=== PATIENT | male | born 1945 | race Caucasian/White ===

== ENCOUNTER 2017-04-04 11:33 | Outpatient (CLI) | payer OTHER, MEDICARE ==
[~2017-04-04] VITALS: Ht 190.5 cm; Wt 118.1 kg
[2017-04-04 11:56] VITALS: BP 133/77
[2017-04-04 12:32] LABS: BILIRUBIN,URINE NEGATIVE (NEGATIVE); KETONES,URINE NEGATIVE (NEGATIVE); LEUKOCYTE ESTERASE ,URINE 3+ (NEGATIVE); NITRITE,URINE POSITIVE (NEGATIVE); PH,URINE 8 (5-9); PROTEIN,URINE 2+ (NEGATIVE); UROBILINOGEN,URINE NORMAL (NORMAL)
[2017-04-04 12:33] LABS: BASOPHILS % (AUTO) 0 % (0-10); EOSINOPHILS # (AUTO) 0.3 10^3/uL (0.0-0.3); EOSINOPHILS % (AUTO) 3 % (0-10); LYMPHOCYTES # (AUTO) 2.2 X 10^3 (1.0-4.0); LYMPHOCYTES % (AUTO) 22 % (12-44); MEAN CORPUSCULAR HEMOGLOBIN 31 PG (25-34); MEAN CORPUSCULAR HGB CONC 33 G/DL (32-36); MEAN CORPUSCULAR VOLUME 91 FL (80-99); MEAN PLATELET VOLUME 9.7 FL (7.4-10.4); MONOCYTES # (AUTO) 0.9 X 10^3 (0.0-1.0); MONOCYTES % (AUTO) 9 % (0-12); NEUTROPHILS # (AUTO) 6.3 X 10^3 (1.8-7.8); NEUTROPHILS % (AUTO) 65 % (42-75); PLATELET COUNT 239 10^3/uL (130-400); RED CELL DISTRIBUTION WIDTH 12.7 % (10.0-14.5); WHITE BLOOD COUNT 9.7 10^3/uL (4.3-11.0)
[2017-04-04 12:55] LABS: SQUAMOUS EPITHELIAL CELL,UR RARE /HPF
[2017-04-04 12:57] LABS: ANION GAP 8 MMOL/L (5-14); BLOOD UREA NITROGEN 25 MG/DL (7-18); BUN/CREATININE RATIO 22; CALCIUM 10.3 MG/DL (8.5-10.1); CARBON DIOXIDE 30 MMOL/L (21-32); CHLORIDE 104 MMOL/L (98-107); CREATININE SERUM 1.15 MG/DL (0.60-1.30); GFR ESTIMATED > 60; GLUCOSE 112 MG/DL (70-105); POTASSIUM 4.3 MMOL/L (3.6-5.0); SODIUM 142 MMOL/L (135-145)
--- NOTE | 2017-04-04 14:07 | Diagnostic Imaging Report ---
PA and lateral views of the chest. INDICATION: Preoperative evaluation for TURP. FINDINGS: The lungs are hyperinflated. The heart size is moderately enlarged. Two pacemaker leads are seen with a pacemaker projecting over left chest. No effusion or pneumothorax. The mediastinum and jose alejandro appear unremarkable. IMPRESSION: Cardiomegaly. COPD. Dictated by: Dictated on workstation # [id number]
[2017-04-04] MEDS ORDERED: PIOG15TA9 PO (15:05)
[2017-04-04] MEDS ORDERED: METF1000 PO (15:05)
[2017-04-04] MEDS ORDERED: CARV3.122 PO (15:05)
[2017-04-04] MEDS ORDERED: GABA800T2 PO (15:05)
[2017-04-04] MEDS ORDERED: CITA10TA12 PO (15:05)
[2017-04-04] MEDS ORDERED: LISI10TA2 PO (15:05)
[2017-04-04] MEDS ORDERED: FINA5TAB6 PO (15:05)
[2017-04-04] MEDS ORDERED: TAMS0.4C2 PO (15:05)
[2017-04-04] MEDS ORDERED: ASPI-586 PO (15:05)
[2017-04-04] MEDS ORDERED: FURO-124 PO (15:05)
[2017-04-04] MEDS ORDERED: LOVA40TA2 PO (15:05)
[2017-04-04] MEDS ORDERED: CLOP75TA28 PO (15:05)
== END 2017-04-04 15:19 | disposition home or self-care (01) ==
LOC: PREOP 11:33
PROVIDERS: ATTEND Urology
DX: Z01.812 Encounter for preprocedural laboratory examination (principal); Z01.811 Encounter for preprocedural respiratory examination; N40.1 Benign prostatic hyperplasia with lower urinary tract symptoms
CPT/HCPCS: 36415; 71020; 80048; 81000; 85025; 86850; 86900; 86901; 87081; 87088; 93005

== ENCOUNTER 2017-04-08 07:40 | Day surgery (SDC) | payer OTHER, MEDICARE ==
[~2017-04-08] VITALS: Ht 190.5 cm; Wt 118.1 kg
[~2017-04-08 07:40] MED LIST: ASPI-586 PO; CARV3.122 PO; CITA10TA12 PO; CLOP75TA28 PO; FINA5TAB6 PO; FURO-124 PO; GABA800T2 PO; LISI10TA2 PO; LOVA40TA2 PO; METF1000 PO; PIOG15TA9 PO; TAMS0.4C2 PO
[2017-04-08 08:10] VITALS: BP 169/92
[2017-04-08] MEDS ORDERED: cefTRIAXone 1 GM/NS 50 ML IVPB IV ONE ×2 (08:15)
[2017-04-08] MEDS: LACTATED RINGERS 1,000 ML IV PRN ×2 (08:20→10:28)
[2017-04-08] MEDS ORDERED: LEVOFLOXACIN 500 MG/100 ML IV 100 ML ONE (08:24)
--- NOTE | 2017-04-08 08:33 | Progress Note-Pre Operative ---
Pre-Operative Progress Note H&P Reviewed The H&P was reviewed, patient examined and no changes noted. Date Seen by Provider: Apr 08, 2017 Time Seen by Provider: 08:33 Date H&P Reviewed: Apr 08, 2017 Time H&P Reviewed: 08:33 Pre-Operative Diagnosis: BPH WITH URINE RETENTION VINNIE RAHMAN MD Apr 08, 2017 08:33
[2017-04-08] MEDS ORDERED: LEVOFLOXACIN 500 MG/100 ML IV 100 ML IV ONE (08:45)
[2017-04-08] MEDS ORDERED: LACTATED RINGERS 1,000 ML IV SCH (09:26)
[2017-04-08] MEDS ORDERED: ZOLPIDEM 5 MG (AMBIEN) TAB PO PRN (09:30)
[2017-04-08] MEDS ORDERED: MILK OF MAGNESIA 400 MG/5 ML 30 ML UDC PO PRN (09:30)
--- NOTE | 2017-04-08 09:33 | Progress Note-Post Operative ---
Post-Operative Progess Note Surgeon (s)/Paid Internship (s) Surgeon VINNIE RAHMAN MD Paid Internship: N/A Pre-Operative Diagnosis BPH WITH URINE RETENTION Post-Operative Diagnosis SAME Procedure & Operative Findings Date of Procedure 04/08/17 Procedure Performed/Findings TURP Anesthesia Type SPINAL Estimated Blood Loss Estimated blood loss (mL): 150cc Specimens/Packing Specimens Removed PROSTATE CHIPS Packing: N/A VINNIE RAHMAN MD Apr 08, 2017 9:33 am
[2017-04-08] MEDS ORDERED: MIDAZOLAM 2 MG/2 ML (VERSED) VIAL ONE (09:36)
[2017-04-08] MEDS ORDERED: PROPOFOL INJECTION 50 ML IV ONE (09:37)
[2017-04-08] MEDS ORDERED: ONDANSETRON 4 MG/2 ML (SDV) Z0FRAN IVP PRN (11:45)
[2017-04-08 12:00] VITALS: BP 172/84
[2017-04-08 12:40] VITALS: BP 169/92
--- NOTE | 2017-04-08 13:09 | Consultation-Hospitalist ---
HPI History of Present Illness: HPI/Chief Complaint Pt is a 72yoCM with PMH of NIDDMII, CAD s/p stenting in September 2016 and pacemaker in January who was admitted for TURP secondary to urinary retention from BPH. He reports that for the past 4-5 months he's been unable to pee and has had to a have a murdock catheter to urinate. He reports he has a history of NIDDMII, HTN, and CAD. He has no complaints as of right now. He is doing well on his medications and follows with cardiologists at [facility]. I am consulted for assistance with managing medical problems Source: patient, family Date Seen 04/08/17 Attending Physician Tony Klein MD PCP Piyush Bolanos Jr, MD Referring Physician Date of Admission Home Medications & Allergies Home Medications Reviewed patient Home Medication Reconciliation Form Allergies Allergies Coded Allergies No Known Drug Allergies (Lywjhcemdq84/19/17) Past Nnevzao-Ozrcjj-Rqvjro Hx Patient Social History Marrital Status: Alcohol Use: Denies Use Recreational Drug Use: No Smoking Status: Former Smoker Former Smoker, Quit: Jun 18, 2016 Recent Foreign Travel: No Contact w/other who traveled: No Recent Hopitalizations: Yes (DC JUN 2016, PACEMAKER SEPTEMBER 2016) Recent Infectious Disease Expo: No Immunizations Up To Date Tetanus Booster (TDap): Unknown Date of Pneumonia Vaccine: October 22, 2016 Date of Influenza Vaccine: Mar 25, 2017 Seasonal Allergies Seasonal Allergies: No Surgeries Yes Abdominal (hernia repair), Tonsillectomy Respiratory No Cardiovascular Yes Coronary Artery Disease, Heart Attack, Heart Murmur, High Cholesterol, Hypertension, Rheumatic Fever Neurological Yes Neuropathy Reproductive System Hx Reproductive Disorders: No Sexually Transmitted Disease: No HIV/AIDS: No Genitourinary Yes Benign Prostatic Hyperpl, Prostate Problems Gastrointestinal Yes No Musculoskeletal Yes Arthritis Endocrine History of Endocrine Disorders: Yes Endocrine Disorders: Diabetes, Non-Insulin dep HEENT Loss of Vision: Bilateral Hearing Impairment: Denies Cancer No Psychosocial History of Psychiatric Problem: Yes Behavioral Health Disorders: Depression Integumentary History of Skin or Integumenta: No Blood Transfusions Adverse Reaction to a Blood Tr: No Family Medical History Significant Family History: CAD Over 55 Years Old (father), Diabetes (mother) Review of Systems Constitutional: No chills, No fever EENTM: No blurred vision, No double vision, No nose congestion, No throat pain Respiratory: No cough, No dyspnea on exertion, No short of breath Cardiovascular: No chest pain, No edema, No palpitations Gastrointestinal: No abdominal pain, No constipation, No diarrhea, No nausea, No vomiting Genitourinary: see HPI Musculoskeletal: No joint pain, No muscle pain Skin: No lesions, No rash Psychiatric/Neurological: Denies Headache, Denies Numbness, Denies Tingling Physical Exam Physical Exam Vital Signs Vital Sign - Last 12Hours 04/08/17 08:10 Temp 98.3 Pulse 67 Resp 20 B/P (MAP) 169/92 Pulse Ox 98 O2 Delivery Room Air Capillary Refill : General Appearance: No Apparent Distress, WD/WN HEENT: PERRL/EOMI, Moist Mucous Membranes Neck: Non Tender, Supple Respiratory: Lungs Clear, No Respiratory Distress Cardiovascular: Regular Rate, Rhythm, No Edema, Normal Peripheral Pulses Gastrointestinal: Normal Bowel Sounds, Non Tender, Soft Extremity: Normal Capillary Refill, No Calf Tenderness Neurologic/Psychiatric: Alert, Oriented x3, Normal Mood/Affect Skin: Normal Color, Warm/Dry Assessment/Plan Admission Diagnosis BPH s/p TURP Diagnosis/Problems Diagnosis/Problems (1) BPH with urinary obstruction Status: Chronic Assessment & Plan: s/p TURP management per Dr Klein (2) CAD (coronary artery disease) Status: Chronic Assessment & Plan: Follows with cardiology at [facility] Resume ASA and Plavixin AM Resume statin tonight Qualifiers: Qualified Codes: I25.10 - Atherosclerotic heart disease of [place] coronary artery without angina pectoris (3) Essential (primary) hypertension Status: Chronic Assessment & Plan: Elevated this AM Resume home meds when taking PO (4) Non-insulin dependent type 2 diabetes mellitus Status: Chronic Assessment & Plan: BS 118 preop Hold metformin Start SSI A (5) Peripheral neuropathy Status: Chronic Assessment & Plan: Continue gabapentin (6) Depression Status: Chronic Assessment & Plan: Continue home antidepressant Qualifiers: Qualified Codes: F32.9 - Major depressive disorder, single episode, unspecified (7) Prophylactic measure Assessment & Plan: SCDs only given surgery Diet per surgery Clinical Quality Measures DVT/VTE Risk/Contraindication: Risk Factor Score Per Nursin RFS Level Per Nursing on Admit: 3=High JUVENAL LUNA MD Apr 08, 2017 13:09
[2017-04-08] MEDS: LACTATED RINGERS 1,000 ML IV SCH ×2 (15:19→18:07)
[2017-04-08 16:10] VITALS: BP 169/92
[2017-04-08 16:20] VITALS: BP 177/79
[2017-04-08] MEDS: BELLADONNA ALK/OPIUM (B & O) 30 MG SUPP PR PRN ×2 (16:26→20:33)
[2017-04-08] MEDS: HYDROcodone/APAP 10 MG/325 MG (LORTAB) TAB PO PRN ×4 (16:26→23:11)
[2017-04-08] MEDS: DOCUSATE SODIUM 100 MG (COLACE) CAP PO SCH (20:25)
[2017-04-08] MEDS: GABAPENTIN 400 MG (NEURONTIN) CAP PO SCH (20:25)
[2017-04-08] MEDS: CARVEDILOL 3.125 MG (COREG) TABLET PO SCH (20:25)
[2017-04-08 20:40] VITALS: BP 155/84
[2017-04-08] MEDS ORDERED: ATORVASTATIN 40 MG (LIPITOR) TABLET PO SCH (21:00)
[2017-04-08] MEDS ORDERED: NON-FORMULARY MEDICATION 1 EA EA (Gabapentin 800 MG) PO SCH (21:00)
[2017-04-09 00:25] VITALS: BP 110/58
[2017-04-09] MEDS: LACTATED RINGERS 1,000 ML IV SCH (01:33)
[2017-04-09] MEDS: HYDROcodone/APAP 10 MG/325 MG (LORTAB) TAB PO PRN ×2 (01:35→06:23)
[2017-04-09 04:27] VITALS: BP 121/60
--- NOTE | 2017-04-09 04:48 | OPERATIVE REPORT ---
DATE OF SERVICE: 04/08/2017 PREOPERATIVE DIAGNOSIS: Benign prostatic hyperplasia with urinary retention. POSTOPERATIVE DIAGNOSIS: Benign prostatic hyperplasia with urinary retention. OPERATION PERFORMED: Transurethral resection of the prostate. SURGEON: Vinnie Rahman MD ANESTHESIA: Spinal. COMPLICATIONS: None. DESCRIPTION OF PROCEDURE: Under satisfactory spinal anesthesia, the patient in the lithotomy position, genitalia were prepped and draped in the usual sterile fashion. The urethra was dilated with Tien sound to #30 [place] easily to accommodate a 27-[place] [employer] resectoscope. Attention was directed first to the median lobe, which was level and then the lateral lobes from 1 o'clock to 6 o'clock position. The capsule was visualized in many points. Bleeders were cauterized as the dissection was proceeding. The prostatic chips were then evacuated and cystoscopy confirmed intact ureteric orifices, veru and sphincter with good reflex. Hemostasis was very satisfactory and resection very adequate. The resectoscope was then removed and a 22-[place] 3-way 30 mL balloon catheter was inserted into the bladder. The balloon inflated to 50 mL, connected to continuous bladder irrigation. The urine was fairly clear. We put the catheter on traction. Estimated blood loss was 150 mL, none of which was replaced. The patient tolerated the procedure and anesthesia well and was sent to recovery room in stable condition. Job ID: [id number] DocumentID: [id number] Dictated Date: 04/08/2017 11:23:34 Logistics Planning Engineer Date: 04/08/2017 20:12:09 Dictated By: VINNIE RAHMAN MD
[2017-04-09 08:00] VITALS: BP 140/69
--- NOTE | 2017-04-09 08:33 | Progress Note-Urology ---
Progress Note-Urology Progress Notes/Assess & Plan Progress/Assessment & Plan AFEBRILE, VSS. DOING VERY WELL POST TURP. URINE TINGED. TOLERATED PO WELL Final Diagnosis BPH WITH URINE RETENTION POST TURP VINNIE RAHMAN MD Apr 09, 2017 08:33
[2017-04-09] MEDS ORDERED: lisINopril 10 MG (PRINIVIL) TAB PO SCH (09:00)
[2017-04-09] MEDS ORDERED: FUROSEMIDE 40 MG (LASIX) TAB PO SCH (09:00)
[2017-04-09] MEDS: ASPIRIN E.C. 81 MG (ECOTRIN) TAB PO SCH ×2 (09:13→09:16)
[2017-04-09] MEDS: DOCUSATE SODIUM 100 MG (COLACE) CAP PO SCH (09:13)
[2017-04-09] MEDS: GABAPENTIN 400 MG (NEURONTIN) CAP PO SCH (09:13)
[2017-04-09] MEDS: CARVEDILOL 3.125 MG (COREG) TABLET PO SCH (09:13)
[2017-04-09] MEDS: CLOPIDOGREL 75 MG (PLAVIX) TABLET PO SCH ×2 (09:13→09:16)
[2017-04-09] MEDS ORDERED: LEVOFLOXACIN 500 MG/100 ML IV 100 ML IV SCH (09:30)
[2017-04-09 12:07] VITALS: BP 145/73
--- NOTE | 2017-04-09 13:19 | Progress Note-Hospitalist ---
Subjective HPI/CC On Admission Date Seen by Provider: Apr 09, 2017 Time Seen by Provider: 10:00 Pt is a 72yoCM with PMH of NIDDMII, CAD s/p stenting in September 2016 and pacemaker in January who was admitted for TURP secondary to urinary retention from BPH. He reports that for the past 4-5 months he's been unable to pee and has had to a have a murdock catheter to urinate. He reports he has a history of NIDDMII, HTN, and CAD. He has no complaints as of right now. He is doing well on his medications and follows with cardiologists at [facility]. I am consulted for assistance with managing medical problems Subjective/Events-last exam Reports feeling well. Had catheter removed about 30m ago. Anxious to urinate. Reports must urinate [address] Klein will DC. Objective Exam Vital Signs Vital Sign - Last 12Hours 04/08/17 08:10 Temp 98.3 Pulse 67 Resp 20 B/P (MAP) 169/92 Pulse Ox 98 O2 Delivery Room Air Capillary Refill : General Appearance: No Apparent Distress, WD/WN Respiratory: Lungs Clear, No Respiratory Distress Cardiovascular: No Murmur Gastrointestinal: Normal Bowel Sounds, Non Tender, Soft Extremity: Non Tender, No Calf Tenderness Neurologic/Psychiatric: Alert, Oriented x3 Assessment/Plan Assessment and Plan Assess & Plan/Chief Complaint BPH s/p TURP Diagnosis/Problems Diagnosis/Problems (1) BPH with urinary obstruction Status: Chronic Assessment & Plan: s/p TURP management per primary Dr Klein (2) CAD (coronary artery disease) Status: Chronic Assessment & Plan: Follows with cardiology at [facility] Resume ASA and Plavix per Dr Klein- would favor ANGEL given how recent stenting was done Continue Statin Qualifiers: Qualified Codes: I25.10 - Atherosclerotic heart disease of [place] coronary artery without angina pectoris (3) Essential (primary) hypertension Status: Chronic Assessment & Plan: Improving Continue home meds (4) Non-insulin dependent type 2 diabetes mellitus Status: Chronic Assessment & Plan: BS 118 preop Hold metformin (5) Peripheral neuropathy Status: Chronic Assessment & Plan: Continue gabapentin (6) Depression Status: Chronic Assessment & Plan: Continue home Citalopram Qualifiers: Qualified Codes: F32.9 - Major depressive disorder, single episode, unspecified (7) Prophylactic measure Assessment & Plan: SCDs only given surgery Reg Diet Saline lock OK to DC home when okay with primary JUVENAL LUNA MD Apr 09, 2017 13:19
--- NOTE | 2017-04-09 14:55 | Anesthesia-Regional Post-Op ---
Regional Patient Condition Mental Status: Alert, Oriented x3 Circulation: Same as Pre-Op Headache: Absent Sensation: Full Recovery Motor Block: Absent Post Op Complications Complications None Follow Up Care/Instructions Patient Instructions None needed. Anesthesia/Patient Condition Patient is doing well, no complaints, stable vital signs, no apparent adverse anesthesia problems. No complications reported per nursing. URBAN SALEH CRNA Apr 09, 2017 14:55
== END 2017-04-09 15:50 | disposition home or self-care (01) ==
LOC: SDC 07:40 → 4TH 12:30 → SDC 04-09 15:50
PROVIDERS: ATTEND Urology
DX: N40.1 Benign prostatic hyperplasia with lower urinary tract symptoms (principal); R33.9 Retention of urine, unspecified; E11.9 Type 2 diabetes mellitus without complications; I25.10 Atherosclerotic heart disease of native coronary artery without angina pectoris; Z95.0 Presence of cardiac pacemaker; I25.2 Old myocardial infarction; E78.00 Pure hypercholesterolemia, unspecified; I10 Essential (primary) hypertension; F32.9 Major depressive disorder, single episode, unspecified; G62.9 Polyneuropathy, unspecified; Z87.891 Personal history of nicotine dependence; Z95.5 Presence of coronary angioplasty implant and graft
CPT/HCPCS: 82962